=== PATIENT | male | born 1970 | race Asian ===

== ENCOUNTER 2025-05-16 07:00 | Emergency (ER) | payer SELFPAY ==
[2025-05-16 07:08] VITALS: BP 177/95; PULSE 105; RESP 18; TEMP 98.7; O2SAT 99
[2025-05-16] MEDS: SODIUM CHLORIDE 0.9% 1,000 ML IV ONE (07:17)
[2025-05-16] MEDS: PERTUSS(ACELL),DIPH,TET/PF 0.5 ML SYRINGE [ADULT] IM. ONE (07:20)
[2025-05-16] MEDS: CeFAZolin 1 GM/DEXTROSE 50 ML IV ONE (07:21)
[2025-05-16] MEDS: GELATIN SPONGE,ABSORBABLE 100 MM TP ONE (07:34)
[2025-05-16 07:42] LABS: PLATELET COUNT (AUTO) 399 K/uL (150-450); RED BLOOD CELL COUNT(AUTO) 4.56 MIL/uL (4.50-5.90); RED CELL DISTRIBUTION WIDTH 14.3 % (11.5-14.5); WHITE BLOOD COUNT (AUTO) 21.8 K/uL (4.5-11.0)
[2025-05-16 07:45] LABS: CALCIUM, TOTAL 9.2 mg/dL (8.8-10.5); CREATININE 1.23 mg/dL (0.60-1.30); GLOMERULAR FILTR. RATE CALC > 60 mL/min (>60); GLUCOSE,RANDOM 186 mg/dL (70-110); SODIUM SERUM 139 mmol/L (136-145); UREA NITROGEN, BLOOD 13 mg/dL (7-18)
[2025-05-16 08:09] LABS: RBC MORPHOLOGY COMMENT NORMAL RBC MORPH
== END 2025-05-16 07:55 | disposition short-term general hospital (02) ==
LOC: EMS 07:18
DX: S21.211A Laceration without foreign body of right back wall of thorax without penetration into thoracic cavity, initial encounter (principal); W26.0XXA Contact with knife, initial encounter; Y93.G3 Activity, cooking and baking; Y92.030 Kitchen in apartment as the place of occurrence of the external cause; Y99.8 Other external cause status
CPT/HCPCS: 99284; 96365; 71045; 80048; 85025; 85610; 36415; 90715; 90471; 12002; J0690